=== PATIENT | female | born 1970 | race Caucasian/White ===

== ENCOUNTER 2017-01-08 15:29 | Emergency (ER) | payer OTHER ==
[~2017-01-08] VITALS: Ht 162.6 cm; Wt 113.4 kg
[~2017-01-08 15:29] MED LIST: ACYCLOVIR 400400 MG PO; ASPIRIN EC81 M1 PO; AUGMENTIN 875875 MG PO; LIORESAL 10 MG10 MG PO; NAPROSYN500 MG PO; NOHOMEMEDICATIONS; NORCO 5-325 TA1 EACH PO; PENICILLIN VK250 MG PO; PREDNISONE 20 M20 M1 PO; XARELTO20 MG PO
[2017-01-08] MEDS ORDERED: ULTRAM 50MG TAB50 MG PO (15:55)
== END 2017-01-08 16:03 | disposition home or self-care (01) ==
LOC: ER 15:29
DX: S86.912A Strain of unspecified muscle(s) and tendon(s) at lower leg level, left leg, initial encounter (principal); X58.XXXA Exposure to other specified factors, initial encounter; Y93.89 Activity, other specified; Y92.89 Other specified places as the place of occurrence of the external cause; Y99.8 Other external cause status